=== PATIENT | male | born 2000 | race Caucasian/White ===

== ENCOUNTER 2022-02-27 19:05 | Emergency (ER) | payer MEDICAID ==
[~2022-02-27] VITALS: Ht 182.9 cm; Wt 63.5 kg
[2022-02-27 19:14] VITALS: BP_SYST 98
[2022-02-27 19:21] VITALS: BP_SYST 98
== END 2022-02-27 19:28 ==
LOC: SED 19:05
DX: Z02.89 Encounter for other administrative examinations (principal); J45.909 Unspecified asthma, uncomplicated
CPT/HCPCS: 99283